=== PATIENT | male | born 1945 | race Two or more races ===

== ENCOUNTER 2020-12-23 08:37 | Emergency (ER) | payer OTHER ==
[~2020-12-23] VITALS: Ht 177.8 cm; Wt 90.7 kg
[~2020-12-23 08:37] MED LIST: DICLOFENAC SODI50 MG PO
[2020-12-23] MEDS ORDERED: ATORVASTATIN CA20 MG PO (08:52)
[2020-12-23] MEDS ORDERED: ZESTRIL40 M1 PO (08:53)
[2020-12-23] MEDS ORDERED: FORTAMET1000 MG PO (08:53)
[2020-12-23] MEDS ORDERED: INSULIN 70/30 (08:54)
[2020-12-23] MEDS ORDERED: DICLOFENAC POTA50 MG PO (11:15)
[2020-12-23] MEDS ORDERED: ORPHENADRINE C100 MG PO (11:15)
== END 2020-12-23 12:42 | disposition home or self-care (01) ==
LOC: ER 08:37
DX: G89.11 Acute pain due to trauma (principal); M54.2 Cervicalgia; S13.8XXS Sprain of joints and ligaments of other parts of neck, sequela; W18.39XS Other fall on same level, sequela

== ENCOUNTER 2020-12-31 09:06 | Emergency (ER) | payer OTHER ==
[~2020-12-31] VITALS: Ht 177.8 cm; Wt 90.7 kg
[~2020-12-31 09:06] MED LIST changes: +ATORVASTATIN CA20 MG PO; +DICLOFENAC POTA50 MG PO; +FORTAMET1000 MG PO; +INSULIN 70/30; +ORPHENADRINE C100 MG PO; +ZESTRIL40 M1 PO
[2020-12-31] MEDS ORDERED: CIPRO500 MG PO (15:36)
[2020-12-31] MEDS ORDERED: KETO10TA2 PO (15:36)
== END 2020-12-31 15:43 | disposition home or self-care (01) ==
LOC: ER 09:06
DX: M79.641 Pain in right hand (principal); R60.0 Localized edema

== ENCOUNTER → 2021-01-10 08:17 | Outpatient (CLI) | payer OTHER ==
[~2021-01-10 08:17] MED LIST changes: +CIPRO500 MG PO; +KETO10TA2 PO
== END | disposition home or self-care (01) ==
LOC: LAB 08:17
PROVIDERS: ATTEND Internal Medicine Cardiovascular Disease
DX: M06.842 Other specified rheumatoid arthritis, left hand (principal); L03.114 Cellulitis of left upper limb; M06.8A Other specified rheumatoid arthritis, other specified site

== ENCOUNTER → 2021-01-21 07:30 | Outpatient (CLI) | payer OTHER | END | disposition home or self-care (01) | LOC: LAB 07:30 | PROVIDERS: ATTEND Internal Medicine Cardiovascular Disease | DX: N39.8 Other specified disorders of urinary system (principal); D63.1 Anemia in chronic kidney disease ==

== ENCOUNTER 2021-02-17 09:41 | Outpatient (CLI) | payer OTHER | END 2021-02-17 09:44 | disposition home or self-care (01) | LOC: SONOGRAMA 09:41 → MAMO-SONO 10:00 | PROVIDERS: ATTEND Specialist | DX: M19.041 Primary osteoarthritis, right hand (principal); M19.042 Primary osteoarthritis, left hand ==

== ENCOUNTER 2021-12-29 10:54 | Outpatient (CLI) | payer OTHER | END 2021-12-29 11:09 | disposition home or self-care (01) | LOC: PPH VACUNA 10:54 | PROVIDERS: ATTEND Emergency Medicine Pediatric Emergency Medicine | DX: Z23 Encounter for immunization (principal) ==

== ENCOUNTER 2023-04-24 09:56 | Emergency (ER) | payer OTHER ==
[~2023-04-24] VITALS: Ht 177.8 cm; Wt 84.4 kg
== END 2023-04-24 14:59 | disposition home or self-care (01) ==
LOC: ER 09:56
DX: M25.552 Pain in left hip (principal); E11.9 Type 2 diabetes mellitus without complications; Z79.4 Long term (current) use of insulin; Z79.84 Long term (current) use of oral hypoglycemic drugs; I10 Essential (primary) hypertension; C95.90 Leukemia, unspecified not having achieved remission; Z88.0 Allergy status to penicillin
CPT/HCPCS: 73502; 96372; 99284; J2360